=== PATIENT | male | born 1970 | race Caucasian/White ===

== ENCOUNTER 2017-05-13 17:42 | Emergency (ER) | payer OTHER ==
--- NOTE | ~2017-05-13 | ER ---
PATIENT'S NAME: JENNIFER THORPE [facility] AGE: 47 Y [address] ROOM: [place] [address] LOCATION: [facility] ADMIT DATE: 05/13/2017 ER/Outpatient Report DISCHARGE DATE: 05/13/2017 FAMILY PHYSICIAN: Robert Tate MD ATTENDING PHYSICIAN: Vik Iniguez CHIEF COMPLAINT: Right lower back pain. HISTORY OF PRESENT ILLNESS: The patient has had pain in his right lower back for the past couple weeks. He has been using ice and ibuprofen and getting along. Within the last few days, he pushed a little bit as far as bending and activity, and now has worsening pain in his right lower back as well as some pain down the right leg to the point of the knee. He denies any history of injury. He has not had much in the way of back pain in the past. He has no loss of bowel and bladder. He has no paresthesias. He has no history of cancer. He has no history of prostate difficulties. The patient does not frequently see a healthcare provider. PAST MEDICAL HISTORY: None. ALLERGIES: NONE. MEDICATIONS: None. SOCIAL HISTORY: He does smoke one-half pack of cigarettes per day for the past 10 years. He occasionally drinks alcoholic beverages. REVIEW OF SYSTEMS: GENERAL: He denies any fevers, chills, or sweats. He has not had a change on his weight. HEENT: No complaints. CARDIOVASCULAR: No chest pain or palpitations. RESPIRATORY: No shortness of breath or cough. GI: No nausea, vomiting, diarrhea, or constipation. States normal bowel movement earlier today. Denies any abdominal pain. : No urgency frequency, dysuria, or loss of bladder. NEURO: No complaints. MUSCULOSKELETAL: Pain in the right lower back radiating into the right leg down to the knee. PATIENT'S NAME: JENNIFER THORPE [facility] AGE: 47 Y [address] ROOM: [place] [address] LOCATION: [facility] ADMIT DATE: 05/13/2017 ER/Outpatient Report DISCHARGE DATE: 05/13/2017 FAMILY PHYSICIAN: Robert Tate MD ATTENDING PHYSICIAN: Vik Iniguez HEMATOLOGY: No history of bleeding disorders. ENDOCRINE: No complaints. PSYCH: No complaints. PHYSICAL EXAMINATION: VITAL SIGNS: Temperature is 97.8, pulse is 66, respiratory rate 24, blood pressure 164/101, oxygen saturation 98% on room air. GENERAL APPEARANCE: Alert and oriented. [place], warm, and dry. Lying on the exam table with his legs crossed, in no acute distress. HEENT: Head: Normocephalic. Eyes: PERRL. Ears, Nose, and Throat: Not examined. NECK: Supple. No lymphadenopathy. LUNGS: There is expiratory wheeze and crackle in the right base, this does clear with deep breathing and cough. RESPIRATORY: Effort is normal. Remainder of lung carbajal are clear. HEART: Rate is regular. Normal S1, S2. No murmurs. ABDOMEN: Soft with bowel sounds present in all 4 quadrants. EXTREMITIES: Cap refill is less than 3 seconds. Peripheral pulses are 2+. There is no peripheral edema. He is able to straight both legs with minimal difficulty and he repositions himself on the cot with minimal difficulty. NEURO: Cranial nerves 2 through 12 are intact. Motor strength 5/5 in the upper and lower extremities. Gait is steady. He does take a couple of steps gingerly before ambulating without any apparent pain. ASSESSMENT: Lumbar pain with right leg radiculopathy, onset approximately 2 weeks ago. EMERGENCY DEPARTMENT COURSE: I visited with the patient about the usual course of this as far as what to be expected with this type of discomfort and their current recommendations for treatment. DISPOSITION/PLAN: The patient was cautioned about taking too much ibuprofen as he had done so earlier today. He is given written instructions on appropriate dosing. He was given a prescription for Flexeril to use. In addition, he is to use ice. I recommend that he remain active and that he also could take some Tylenol 2 to 3 times a day. I did also write a prescription for him to start physical therapy. Explained to him that it is important to try these conservative measures, including physical therapy prior to imaging. I do recommend that he follow up with his primary care provider in 7 days to evaluate how he is doing with physical therapy as well as to have his blood pressure rechecked. PATIENT'S NAME: ADDI THORPEMONICA Carvajal [facility] AGE: 47 Y [address] ROOM: [place] [address] LOCATION: [facility] ADMIT DATE: 05/13/2017 ER/Outpatient Report DISCHARGE DATE: 05/13/2017 FAMILY PHYSICIAN: Robert Tate MD ATTENDING PHYSICIAN: Vik Iniguez, SOFTWARE DEVELOPER MANAGER FOR [employer] MD DP/modl /[id number] d: 05/14/17 0048 t: 05/19/17 0642, OUTPATIENT REPORT
== END 2017-05-13 18:36 | disposition disaster alternative care site (69) ==
LOC: GMED 17:42
DX: M54.16 Radiculopathy, lumbar region (principal); F17.210 Nicotine dependence, cigarettes, uncomplicated